=== PATIENT | male | born 1945 | race Caucasian/White ===

== ENCOUNTER → 2016-11-11 | Emergency (ER) | payer OTHER ==
[~2016-11-11] VITALS: Ht 185.4 cm; Wt 78.9 kg
[~2016-11-11] MED LIST: BENA20TA4 PO; COMIH INH; DILT240C9 PO; TAM04C PO; TEMA30CA PO
[2016-11-11 19:49] VITALS: BP 161/82
== END | disposition left against medical advice (07) ==
LOC: ER 19:51
DX: Z76.1 Encounter for health supervision and care of foundling (principal); Z46.6 Encounter for fitting and adjustment of urinary device; Z53.21 Procedure and treatment not carried out due to patient leaving prior to being seen by health care provider

== ENCOUNTER 2016-12-17 17:32 | Emergency (ER) | payer OTHER ==
[~2016-12-17] VITALS: Ht 185.4 cm; Wt 80.3 kg
[2016-12-17] MEDS ORDERED: ALBUTEROL SULF 2.5 MG/0.5ML(0.5%) NEB SOLN NEB ONE ×2 (18:30→22:15)
[2016-12-17] MEDS ORDERED: IPRATROPIUM BROM 0.5 MG/2.5ML INH SOL NEB ONE ×2 (18:30→22:15)
[2016-12-17 19:03] LABS: Basophils # (auto) 0 uL; Basophils % (auto) 0.4 % (0.0-2.0); DEFINITIVE VIEW TRANSMISSION; Eosinophils # (auto) 1.1 uL; Eosinophils % (auto) 14.6 % (0.0-7.0); Hematocrit 48.4 % (41.0-53.0); Hemoglobin 16.1 g/dL (13.5-17.5); Lymphocytes # (auto) 1.2 uL; Lymphocytes % (auto) 15.4 % (10.0-50.0); Mean Corpuscular Hgb Conc. 33.3 g/dL (32.0-36.0); Mean Corpuscular Volume 95.9 fL (80.0-100.0); Mean Platelet Volume 7.1 fL (7.4-10.4); Monocytes # (auto) 0.5 uL; Monocytes % (auto) 6.5 % (0.0-12.0); Neutrophils % (auto) 63.1 % (37.0-80.0); Platelet Count (auto) 331 10^3/uL (140-450); Red Cell Distribution Width 13.8 % (11.6-16.0); White Blood Cell 7.9 10^3/uL (4.4-10.8)
[2016-12-17 19:57] LABS: Albumin 3.9 g/dL (3.4-5.0); Alkaline Phosphatase 64 U/L (45-117); Anion Gap 10 (5-15); Aspartate Aminotransferase 14 U/L (15-37); BUN/Creatinine Ratio 11.1; Bilirubin, Total 0.7 mg/dL (0.2-1.0); Blood Urea Nitrogen 10 mg/dL (7-18); Calcium 8.9 mg/dL (8.5-10.1); Carbon Dioxide 26 mmol/L (21-32); Chloride 94 mmol/L (98-107); GFR African American 106 mL/min; GFR Non-African American 88 mL/min; Glucose 84 mg/dL (74-106); Sodium 130 mmol/L (136-145); Total Protein 7.4 g/dL (6.4-8.2)
[2016-12-17 21:37] LABS: B-Type Natriuretic Peptide 15.76 pg/mL (0-100)
[2016-12-17 21:46] LABS: Temperature: 23.3 C (20.0-25.0)
[2016-12-17 22:41] LABS: Urine Bilirubin Negative (Negative); Urine Blood Negative /uL (Negative); Urine Color Yellow (Yellow); Urine Glucose Normal (Normal); Urine Ketone Negative (Negative); Urine Nitrite POSITIVE (Negative); Urine RBC 1 /hpf (0 - 3); Urine Urobilinogen Normal (Negative); Urine pH 6.5 (5.0-8.0)
[2016-12-17 22:58] VITALS: BP 165/85
[2016-12-21] MEDS ORDERED: FAMO-12 PO (02:26)
== END 2016-12-17 23:23 | disposition home or self-care (01) ==
LOC: ER 17:32
DX: J44.1 Chronic obstructive pulmonary disease with (acute) exacerbation (principal); T83.011A Breakdown (mechanical) of indwelling urethral catheter, initial encounter; I10 Essential (primary) hypertension; N40.0 Benign prostatic hyperplasia without lower urinary tract symptoms; Z87.891 Personal history of nicotine dependence
CPT/HCPCS: 36415; 51702; 71020; 80053; 81001; 83880; 84484; 85025; 85379; 93005; 94640

== ENCOUNTER 2016-12-25 15:14 | Emergency (ER) | payer OTHER ==
[~2016-12-25] VITALS: Ht 185.4 cm; Wt 80.7 kg
[~2016-12-25 15:14] MED LIST changes: +FAMO-12 PO
[2016-12-25 15:19] VITALS: BP 131/70
== END 2016-12-25 19:04 | disposition home or self-care (01) ==
LOC: ER 15:18
DX: R32 Unspecified urinary incontinence (principal); R33.9 Retention of urine, unspecified; J44.9 Chronic obstructive pulmonary disease, unspecified; I10 Essential (primary) hypertension; Z87.891 Personal history of nicotine dependence